=== PATIENT | male | born 1995 | race Caucasian/White ===

== ENCOUNTER 2016-12-27 20:50 | Emergency (ER) | payer BC ==
[2016-12-27 21:51] VITALS: BP 133/70
--- NOTE | 2016-12-27 22:13 | UC ---
Respiratory Complaint HPI - HPI Summary HPI Summary: 21 yo male with 4 day hx of f/c, myalgias and arthralgia, cough, headache and sore throat - History of Current Complaint Chief Complaint: UCGeneralIllness Stated Complaint: QUEEN/ST/BODY ACHES Time Seen by Provider: 12/27/16 22:00 Hx Obtained From: Patient Onset/Duration: Sudden Onset, Lasting Days Timing: Constant Severity Initially: Mild Severity Currently: Moderate Pain Intensity: 6 Pain Scale Used: 0-10 Numeric Character: Cough: Nonproductive Aggravating Factors: Nothing Alleviating Factors: Nothing Associated Signs And Symptoms: Positive: Fever, Chills, Nasal Congestion, Sinus Discomfort - Allergies/Home Medications Allergies/Adverse Reactions: Allergies Allergy/AdvReac Type Severity Reaction Status Date / Time No Known Allergies Allergy Verified 12/27/16 21:45 Home Medications: Home Medications Lisdexamfetamine Dimesylate [Vyvanse] 40 mg PO DAILY 12/27/16 [History Confirmed 12/27/16] PMH/Surg Hx/FS Hx/Imm Hx Previously Healthy: Yes Respiratory History Of: Reports: Pneumonia - as child - Surgical History Surgical History: None - Family History Known Family History: Positive: Hypertension - Social History Alcohol Use: None Substance Use Type: None Smoking Status (MU): Never Smoked Tobacco Review of Systems Constitutional: Fever, Chills Skin: Negative Eyes: Negative ENT: Sore Throat, Ear Ache, Nasal Discharge Respiratory: Cough Cardiovascular: Negative Gastrointestinal: Negative Genitourinary: Negative Motor: Negative Neurovascular: Negative Musculoskeletal: Negative Neurological: Negative Psychological: Negative All Other Systems Reviewed And Are Negative: Yes Physical Exam Triage Information Reviewed: Yes Appearance: Well-Appearing, No Pain Distress, Well-Nourished Vital Signs: Initial Vital Signs Temp 99.6 F 12/27/16 21:46 Pulse 101 12/27/16 21:46 Resp 16 12/27/16 21:46 BP 133/70 12/27/16 21:46 Pulse Ox 99 12/27/16 21:46 Vital Signs Reviewed: Yes Eyes: Positive: Conjunctiva Clear ENT: Positive: Hearing grossly normal, Pharyngeal erythema, Nasal drainage, TMs normal. Negative: TM bulging, TM dull, TM red, Tonsillar swelling, Tonsillar exudate, Trismus, Muffled/hoarse voice Dental: Negative: Gross Decay/Caries @, Dental Fracture @ Neck: Positive: Supple, Nontender, Enlarged Nodes @ - ant cervical Respiratory: Positive: Lungs clear, Normal breath sounds, No respiratory distress Cardiovascular: Positive: RRR, No Murmur, Pulses Normal Abdomen Description: Positive: Nontender, No Organomegaly, Soft Musculoskeletal: Positive: ROM Intact, No Edema Neurological Exam: Normal Neurological: Positive: Alert Psychological Exam: Normal Skin Exam: Normal UC Diagnostic Evaluation - Laboratory O2 Sat by Pulse Oximetry: 99 - normal/not hypoxic Respiratory Course/Dx - Differential Dx/Diagnosis Provider Diagnoses: pharyngitis. ? flu like illness Discharge - Discharge Plan Condition: Stable Disposition: HOME Prescriptions: Amoxicillin (*) [Amoxicillin 875 MG (*)] 875 mg PO BID #20 tab Naproxen [Naproxen 500 MG TABS] 500 mg PO BID PRN #20 tab PRN Reason: Pain Patient Education Materials: Pharyngitis (ED) Referrals: Non Staff,Doctor [Primary Care Provider] - Additional Instructions: you may have a flu like illness recheck in 2-3 days if not better rest fluids
[2016-12-27] MEDS ORDERED: Amoxicillin CAP* 500 MG PO ONE (22:21)
[2016-12-27] MEDS ORDERED: Naproxen TAB* 250 MG PO ONE (22:22)
== END 2016-12-27 22:35 | disposition home or self-care (01) ==
LOC: UCCORT 20:50
DX: J02.9 Acute pharyngitis, unspecified (principal); R05 Cough; R51 Headache; R50.9 Fever, unspecified; R09.81 Nasal congestion
CPT/HCPCS: 87502; 99202; A9270-GY; G0463